=== PATIENT | female | born 2000 | race Caucasian/White ===

== ENCOUNTER 2025-07-22 14:50 | Emergency (ER) | payer MEDICAID ==
[~2025-07-22] VITALS: Ht 162.6 cm; Wt 63.0 kg
[2025-07-22 14:56] VITALS: O2SAT 98
[2025-07-22] MEDS: ACETAMINOPHEN 500MG TABLET PO ONE (17:57)
[2025-07-22 20:18] VITALS: BP 114/60; PULSE 66; RESP 16; TEMP 36.9; O2SAT 99
== END 2025-07-22 20:22 | disposition home or self-care (01) ==
LOC: ER 14:50
DX: G44.309 Post-traumatic headache, unspecified, not intractable (principal); S09.8XXA Other specified injuries of head, initial encounter; W50.0XXA Accidental hit or strike by another person, initial encounter; Y93.89 Activity, other specified; Y92.89 Other specified places as the place of occurrence of the external cause; Y99.8 Other external cause status
CPT/HCPCS: 99284

== ENCOUNTER 2025-08-12 22:13 | Emergency (ER) | payer MEDICAID ==
[~2025-08-12] VITALS: Ht 162.6 cm; Wt 64.5 kg
[2025-08-12 22:20] VITALS: O2SAT 100
[2025-08-12 22:49] LABS: BASOPHILS % 0.5 % (0.0-2.0); EOSINOPHILS % 1.0 % (0.0-5.0); HEMATOCRIT. 37.5 % (36.0-48.0); HEMOGLOBIN. 12.5 g/dL (12.0-16.0); LYMPHOCYTES % 37.1 % (20.0-50.0); MEAN PLATELET VOLUME 8.5 fl (7.4-10.4); MONOCYTES % 7.9 % (2.0-8.0); NEUTROPHILS % 53.5 % (40.0-76.0); PLATELET 257 x1000/uL (130-400); RED BLOOD CELL COUNT 4.23 mill/uL (4.2-5.4); RED CELL DISTRIBUTION WIDTH 12.9 % (11.6-14.6)
[2025-08-12 23:07] LABS: CREATININE 0.7 mg/dL (0.6-1.0); UREA NITROGEN BLOOD 11 mg/dL (9-23)
[2025-08-12 23:08] LABS: TROPONIN I HIGH SENSITIVITY < 4 ng/L (3.0-34)
[2025-08-13 00:33] VITALS: BP 117/76; PULSE 72; RESP 15; TEMP 36.8; O2SAT 100
== END 2025-08-13 00:38 | disposition home or self-care (01) ==
LOC: ER 22:13
DX: R07.9 Chest pain, unspecified (principal); E87.6 Hypokalemia
CPT/HCPCS: 36415; 71045; 80048; 81025; 84484; 85025; 93005; 99285